=== PATIENT | female | born 1945 | race Caucasian/White ===

== ENCOUNTER → 2019-08-08 | Outpatient (CLI) | payer MEDICARE ==
--- NOTE | 2019-08-08 16:25 | RAD ---
Examination: US GUID NDL PLACE/ASPI/BX, DIGITAL DIAGNOSTIC LT History: Left breast mass Comparison/Correlation: 07/19/2019 and left breast ultrasound and 06/25/2019 screen mammography exam Findings: Risks and benefits of ultrasound-guided left breast biopsy were discussed with the patient and informed consent was obtained. Preliminary imaging with ultrasound was performed to localize the mass. Lateral approach was utilized. Cleansing with alcohol based solution was performed. Sterile drapes were placed. A total of 8 cc 1 percent lidocaine was utilized. Sterile probe cover and sterile gel is visualized. A scalpel incision was made. Introducer was placed. A 12-gauge core biopsy needle was placed into the mass of interest. Spinal needle was placed through the introducer for additional local anesthetic. A total of 8 passes were made into the mass. Multiple passes were made with an open bevel technique. Clip marker was placed at the end of the exam into the mass. Specimens were placed in a formalin jar and sent to the lab. The patient tolerated procedure well without immediate palpitations. Left CC and MLO images were acquired demonstrating the clip marker of the left upper-outer breast. The mass of interest is not well delineated on these postbiopsy images. The clip marker may be up to 0.7 cm posterior to the site of the mass on the basis of CC projection. Impression: Successful left breast mass biopsy with clip marker placement. A Electronically signed by: Kaveh Luke MD (08/08/2019 4:21 PM) [facility]
--- NOTE | 2019-08-12 09:06 | PATHOLOGY ---
[facility] Accession Number: [id number] . 01 Material submitted: . breast - LEFT BREAST NODULE, 2:30, 8CMFN. Modifiers: left . 01 Clinical history: . Left breast mass, left breast nodule 0.7 cm . 02 Diagnosis: Breast tissue, left breast nodule 2:30 needle biopsies: - Ancient fibroadenoma. LBQ 08/09/2019 1552 Local . 02 Comment: Sections of the left breast nodule at 2:30 needle biopsy reveal an ancient fibroadenoma. There are a few microcalcifications. There is no evidence of malignancy. (JPM/db; 08/09/2019) . 02 Electronically signed: . Sergio Knight MD, Pathologist NPI- [id number] . 01 Gross description: . Received in formalin labeled "Lacy Greenberg, left breast," and additionally labeled on the requisition as "2:30 8 cmFN," are multiple needle cores of yellow-zamorano fibrofatty tissue measuring 1.5 x 0.8 x 0.4 cm in aggregate dimensions. The tissue is submitted in its entirety in cassettes A1 through A3. The cold ischemic time is 10 minutes. The total formalin fixation time is greater than 6 hours and less than 72 hours. (TSD; 08/08/2019) TOB/TOB 08/08/2019 1805 Local . 02 Pathologist provided ICD-10: D05.82 . 02 CPT . 953632 Specimen Comment: A courtesy copy of this report has been sent to Specimen Comment: [phone], , . Specimen Comment: Report sent to ,DR GUTIÉRREZ / DR SZYMANSKI Performed at: 01 [facility] [address], [place], [place] [id number] MD Garrick Lopez MD Phone: [phone] Performed at: 02 [facility] [address] [place] [id number] MD Sergio Knight MD Phone: [phone]
== END | disposition home or self-care (01) ==
LOC: US 09:52 → EDUNIT# 10:30
PROVIDERS: ATTEND Surgery
DX: N63.20 Unspecified lump in the left breast, unspecified quadrant (principal); D24.2 Benign neoplasm of left breast
CPT/HCPCS: 19083; 77065; 88305; C1713; 19081; 76942